=== PATIENT | female | born 1975 | race Hispanic/Latino ===

== ENCOUNTER 2023-01-27 07:50 | Outpatient (CLI) | payer MEDICARE, OTHER ==
[2023-01-27 09:22] LABS: Hematocrit 39.4 % (34.9-44.5); Hemoglobin 12.8 g/dL (12.0-15.5); Mean Corpuscular HGB CONC 32.5 g/dL (32.0-36.0); Mean Corpuscular Hemoglobin 31.6 pg (27.0-33.0); Mean Corpuscular Volume 97.3 fl (81.6-98.3); Mean Platelet Volume 9.8 fl (7.4-10.4); Platelet Count 349 10x3/uL (150-450); RBC Distribution Width 12.5 % (11.5-14.5); Red Blood Cell (RBC) Count 4.05 10x6/uL (3.90-5.03); White Blood Cell (WBC) Count 7.6 10x3/uL (3.5-10.5)
[2023-01-27 10:02] LABS: Anion Gap 15 mmol/L (10-20); BUN (Urea Nitrogen) 16 mg/dL (7.0-18.7); Calc. Creatinine Clearance 0 mL/min (70-130); Carbon Dioxide 23 mmol/L (22-29); Chloride 107 mmol/L (98-107); Estimated GFR 97; Glucose 85 mg/dL (70-105); Sodium 141 mmol/L (136-145)
== END 2023-01-27 07:51 | disposition home or self-care (01) ==
LOC: CSHLAB 07:50
PROVIDERS: ATTEND Otolaryngology Otolaryngic Allergy
DX: Z01.818 Encounter for other preprocedural examination (principal); E04.9 Nontoxic goiter, unspecified
CPT/HCPCS: 80048; 85027; 93005; 93010

== ENCOUNTER 2023-02-01 05:41 | Observation (INO) | payer MEDICARE, OTHER ==
[2023-01-27 08:24] VITALS: BMI 36.1
[2023-02-01] MEDS ORDERED: CEFAZOLIN 1 GM VIAL ONE (06:25)
[2023-02-01] MEDS ORDERED: Lidocaine 1% w/Epinephrine 1:100K 20 ML VIAL ONE (06:26)
[2023-02-01] MEDS ORDERED: Lidocaine 2% PF 5 ML VIAL ONE (06:35)
[2023-02-01] MEDS ORDERED: Dexamethasone 20 MG/5 ML VIAL ONE (06:35)
[2023-02-01] MEDS ORDERED: Fentanyl 250 MCG/5 ML VIAL ONE (06:35)
[2023-02-01] MEDS ORDERED: Ondansetron PF 4 MG/2 ML Vial ONE (06:35)
[2023-02-01] MEDS ORDERED: Dexamethasone 4 mg/ml Vial ONE (06:35)
[2023-02-01] MEDS ORDERED: PROPOFOL 40 ML ONE (06:35)
[2023-02-01] MEDS ORDERED: Midazolam HCl 2 mg/2 ml Vial ONE (06:51)
[2023-02-01] MEDS ORDERED: Dexmedetomidine 200 MCG/2 ML VIAL ONE (06:56)
[2023-02-01] MEDS ORDERED: methylPREDNISolone Sod Succ/PF 125 MG/2 ML VIAL ONE (06:56)
[2023-02-01] MEDS ORDERED: Acetaminophen 325 MG TAB PO PRN (06:57)
[2023-02-01] MEDS ORDERED: Ondansetron ODT 4 MG TAB PO PRN (06:57)
[2023-02-01] MEDS ORDERED: Ondansetron PF 4 MG/2 ML Vial IVP PRN (06:57)
[2023-02-01] MEDS ORDERED: Acetaminophen/Codeine 30-300mg Tablet PO PRN (06:59)
[2023-02-01] MEDS ORDERED: Famotidine 20 MG TAB PO PRN (07:00)
[2023-02-01] MEDS ORDERED: ePHEDrine Sulfate 50 MG/10 ML VIAL ONE (07:17)
[2023-02-01] MEDS ORDERED: PHENYLEPHRINE-NS 100 MCG/ML 10 ML SYRINGE ONE (07:17)
[2023-02-01] MEDS ORDERED: MYCOPHENOLATE PO SCH (09:00)
[2023-02-01] MEDS ORDERED: ENVARSUS 1 MG PO SCH (09:00)
[2023-02-01] MEDS ORDERED: Multivitamin W/ Minerals 1 TAB PO SCH (09:00)
[2023-02-01] MEDS ORDERED: Cholecalciferol 1,000 UNITS (25 MCG) TAB PO SCH (09:00)
[2023-02-01] MEDS: Acetaminophen/Codeine 30-300mg Tablet PO PRN ×3 (09:36→21:19)
[2023-02-01] MEDS: predniSONE 5 MG TAB PO SCH ×2 (10:59→11:20)
[2023-02-02 05:29] VITALS: BP 119/12; TEMP 98.2
== END 2023-02-02 08:31 | disposition home or self-care (01) ==
LOC: CSHSDC 05:41 → CSHIMCU 09:31 → INTOOBSV 09:31
PROVIDERS: ADMIT Otolaryngology Otolaryngic Allergy; ATTEND Otolaryngology Otolaryngic Allergy
PROC: 0GBH0ZZ Excision of Right Thyroid Gland Lobe, Open Approach (ICD-10-PCS; principal; 2023-02-01)
DX: E04.2 Nontoxic multinodular goiter (principal); E01.0 Iodine-deficiency related diffuse (endemic) goiter; N18.6 End stage renal disease; I95.9 Hypotension, unspecified; Z88.6 Allergy status to analgesic agent; Z88.1 Allergy status to other antibiotic agents; Z79.899 Other long term (current) drug therapy; Z94.0 Kidney transplant status; Z98.890 Other specified postprocedural states; Z91.041 Radiographic dye allergy status
CPT/HCPCS: 88307; J0690; J1100; J2001; J2250; J2405; J2704; J2930; J3010; J7512